=== PATIENT | female | born 1975 | race Two or more races ===

== ENCOUNTER 2017-07-31 13:35 | Outpatient (CLI) | payer OTHER | END 2017-07-31 13:46 | disposition home or self-care (01) | LOC: MAMO-SONO 13:35 | DX: R10.31 Right lower quadrant pain (principal); Z12.31 Encounter for screening mammogram for malignant neoplasm of breast; N20.1 Calculus of ureter ==

== ENCOUNTER 2018-12-15 13:00 | Emergency (ER) | payer OTHER ==
[~2018-12-15] VITALS: Ht 170.2 cm; Wt 99.3 kg
== END 2018-12-15 17:49 | disposition home or self-care (01) ==
LOC: ER 13:00
DX: S80.02XA Contusion of left knee, initial encounter (principal); S70.01XA Contusion of right hip, initial encounter; W10.9XXA Fall (on) (from) unspecified stairs and steps, initial encounter; Y93.89 Activity, other specified; Y92.69 Other specified industrial and construction area as the place of occurrence of the external cause; Y99.8 Other external cause status